=== PATIENT | female | born 1970 | race Two or more races ===

== ENCOUNTER 2017-01-04 15:54 | Emergency (ER) | payer MEDICAID, OTHER ==
[~2017-01-04] VITALS: Ht 154.9 cm; Wt 63.5 kg
[2017-01-04 17:02] VITALS: BP 161/79
[2017-01-04 17:03] LABS: Urine RBC None Seen /hpf (0 - 4)
[2017-01-04 18:01] LABS: Urine Bilirubin Negative (Negative); Urine Blood Negative /uL (Negative); Urine Color Brown (Yellow); Urine Glucose Normal (Normal); Urine Ketone Negative (Negative); Urine Squamous Epithelial Cell FEW /hpf (<5); Urine Urobilinogen Normal (Negative)
[2017-01-04 18:04] LABS: Urine Nitrite POSITIVE (Negative)
[2017-01-04] MEDS ORDERED: KETOROLAC TROMETH 30 MG/ML 1ML VIAL IV ONE (19:00)
[2017-01-04] MEDS ORDERED: cefTRIAXone 1GM/50ML D5W 50 ML IV ONE (19:00)
[2017-01-04] MEDS ORDERED: SODIUM CHLORIDE 0.9% 1,000 ML IV ONE (19:15)
== END 2017-01-04 20:09 | disposition home or self-care (01) ==
LOC: ER 15:57
DX: N39.0 Urinary tract infection, site not specified (principal)
CPT/HCPCS: 81001; 81025; 96365; 96375; 99284; J0696; J1885; J7030

== ENCOUNTER 2019-10-27 23:07 | Emergency (ER) | payer MEDICAID, OTHER ==
[~2019-10-27] VITALS: Ht 154.9 cm; Wt 68.5 kg
[2019-10-28 00:09] VITALS: BP 129/70
== END 2019-10-28 01:00 | disposition home or self-care (01) ==
LOC: ER 23:07
DX: H11.32 Conjunctival hemorrhage, left eye (principal); G44.89 Other headache syndrome
CPT/HCPCS: 82962